=== PATIENT | female | born 1970 | race Caucasian/White ===

== ENCOUNTER 2020-01-01 17:23 | Emergency (ER) | payer SELFPAY ==
[~2020-01-01] VITALS: Ht 170.1 cm; Wt 76.2 kg
[2020-01-01] MEDS ORDERED: GOOD NEIGHBOR M25 M1 PO (18:07)
[2020-01-01] MEDS ORDERED: ZOFRAN4 MG PO (18:07)
== END 2020-01-01 18:10 | disposition home or self-care (01) ==
LOC: ED 17:23
DX: R51 Headache (principal); R42 Dizziness and giddiness; M79.10 Myalgia, unspecified site; Z87.891 Personal history of nicotine dependence; Z20.828 Contact with and (suspected) exposure to other viral communicable diseases

== ENCOUNTER 2021-08-13 10:11 | Emergency (ER) | payer BC ==
[~2021-08-13] VITALS: Wt 68.0 kg
[~2021-08-13 10:11] MED LIST: GOOD NEIGHBOR M25 M1 PO; ZOFRAN4 MG PO
[2021-08-13] MEDS ORDERED: ZITHROMAX250 MG PO (13:04)
[2021-08-13] MEDS ORDERED: PREDNISONE20 M1 PO (13:04)
== END 2021-08-13 13:14 | disposition home or self-care (01) ==
LOC: ED 10:11
DX: J40 Bronchitis, not specified as acute or chronic (principal); Z88.0 Allergy status to penicillin

== ENCOUNTER 2022-03-10 17:48 | Emergency (ER) | payer BC ==
[~2022-03-10] VITALS: Ht 172.7 cm; Wt 65.8 kg
[~2022-03-10 17:48] MED LIST changes: +PREDNISONE20 M1 PO; +ZITHROMAX250 MG PO
[2022-03-10 18:37] LABS: BASO % 0.2 % (0.0-1.0); EOS # 0.1 10*3/uL (0.0-0.4); EOS % 1.7 % (1.0-4.0); HEMATOCRIT 36.7 % (37.0-47.0); LYMPH # 2.4 10*3/uL (1.3-4.4); LYMPH % 29.6 % (27.0-41.0); MEAN CELL VOLUME 95.3 fl (81.0-99.0); MEAN CORPUSCULAR HGB 29.9 pg (27.0-31.0); MEAN CORPUSCULAR HGB CONC 31.3 g/dl (33.0-37.0); MEAN PLATELET VOLUME 9.2 fl (9.6-12.3); MONO # 0.5 10*3/uL (0.1-1.0); MONO % 6.5 % (3.0-9.0); NEUT % 61.8 % (47.0-73.0); PLATELET COUNT AUTOMATED 202 10*3/uL (130-400); RED BLOOD COUNT 3.85 10*6/uL (4.10-5.10); RED CELL DISTRI WIDTH 13.4 % (0-14.5)
[2022-03-10 18:49] LABS: ACT PARTIAL THROMBO TIME 25.5 SECONDS (20.0-32.1)
[2022-03-10 18:53] LABS: ALKALINE PHOSPHATASE 52 U/L (45-117); BUN 17 mg/dl (7-24); CHLORIDE 112 mmol/L (98-107); CREATININE 0.73 mg/dL (0.55-1.02); POTASSIUM 3.8 mmol/L (3.5-5.1); SGOT/AST 11 IU/L (3-35); SGPT/ALT 20 U/L (12-78); SODIUM 146 mmol/L (136-145); TOTAL PROTEIN 5.8 gm/dL (6.4-8.2)
== END 2022-03-10 21:09 | disposition left against medical advice (07) ==
LOC: ED 17:48
PROVIDERS: Emergency Medicine
DX: R00.2 Palpitations (principal); R07.89 Other chest pain; M43.6 Torticollis; Z88.0 Allergy status to penicillin; Z79.2 Long term (current) use of antibiotics; Z79.899 Other long term (current) drug therapy